=== PATIENT | female | born 1980 | race Caucasian/White ===

== ENCOUNTER 2020-04-14 03:34 | Emergency (ER) | payer SELFPAY ==
[2020-04-14] MEDS ORDERED: HYDROCODONE/APAP 10/325 TAB ONE (04:35)
[2020-04-14 04:40] VITALS: BP 116/67; TEMP 98.2; O2SAT 100
--- NOTE | 2020-04-18 15:34 | ER ---
Nurse's Notes [facility] Name: Dang Willard Age: 40 yrs Sex: Female : 1980 Arrival Date: 04/14/2020 Time: 03:37 Bed 11 Private MD: Diagnosis: Muscle spasm of calf Presentation: 04/14 03:49 Chief complaint: Patient states: Pain to back of left calve after attempting to jump lp1 over railing this evening about 1730; Denies any other injuries. Coronavirus screen: Proceed with normal triage. Ebola Screen: No symptoms or risks identified at this time. Initial Sepsis Screen: Does the patient meet any 2 criteria? No. Patient's initial sepsis screen is negative. Does the patient have a suspected source of infection? No. Patient's initial sepsis screen is negative. Risk Assessment: Do you want to hurt yourself or someone else? Patient reports no desire to harm self or others. Onset of symptoms was April 13, 2020 at 17:30. 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 - Social history:: Smoking status: Patient reports the use of cigarette tobacco products, smokes one-half pack cigarettes per day, Patient/guardian denies using alcohol, street drugs, The patient lives with family. - Family history:: not pertinent. Screenin:53 Abuse screen: Denies threats or abuse. Denies injuries from another. Nutritional lp1 screening: No deficits noted. Tuberculosis screening: No symptoms or risk factors identified. Fall Risk None identified. Assessment: 03:52 General: Appears in no apparent distress. Behavior is calm, cooperative, appropriate lp1 for age. Pain: Complains of pain in left calf Pain currently is 4 out of 10 on a pain scale. Neuro: Level of Consciousness is awake, alert, obeys commands. Cardiovascular: No deficits noted. Respiratory: No deficits noted. GI: No signs and/or symptoms were reported involving the gastrointestinal system. : No signs and/or symptoms were reported regarding the genitourinary system. EENT: No signs and/or symptoms were reported regarding the EENT system. Derm: Skin is pink, warm \T\ dry. Musculoskeletal: Circulation, motion, and sensation intact. Reports pain in left calf. Vital Signs: 03:49 BP 116 / 67; Pulse 91; Resp 18; Temp 98.2(O); Pulse Ox 100% on R/A; Weight 72.57 kg lp1 (R); Height 5 ft. 5 in. (165.10 cm); Pain 4/10; 03:49 Body Mass Index 26.63 (72.57 kg, 165.10 cm) lp1 ED Course: 03:37 Patient arrived in ED. cl3 03:40 Jarrett Dodge, RN is Primary Nurse. jb4 03:47 Pamela Murguia MD is Attending Physician. ma2 03:51 Triage completed. lp1 03:51 Arm band placed on. lp1 03:53 Denia Groves RN is Primary Nurse. lp1 03:53 Patient has correct armband on for positive identification. lp1 03:54 Denia Groves RN is Primary Nurse. lp1 03:54 No provider procedures requiring assistance completed. Patient did not have IV access lp1 during this emergency room visit. Administered Medications: 04:28 Drug: [place] 10 mg-325 mg 1 tabs Route: PO; lp1 04:28 Follow up: Response: Medication administered at discharge. lp1 Outcome: 04:07 Discharge ordered by . [facility] 04:25 Discharged to home via wheelchair, with friend. lp1 04:25 Condition: good 04:25 Discharge instructions given to patient, Instructed on discharge instructions, follow up and referral plans. medication usage, Demonstrated understanding of instructions, follow-up care, medications, Prescriptions given X 1. 04:33 Patient left the ED. lp1 Signatures: Denia Groves RN RN lp1 Jarrett Dodge, MIREYA RN jb4 Pamela Murgiua MD MD ma2 Lewis, Charde cl3 Corrections: (The following items were deleted from the chart) 04:28 04:25 Discharged to home via wheelchair, 1 lp1
--- NOTE | 2020-04-18 15:34 | EDPHYS ---
Physician Documentation [facility] Name: Dang Willard Age: 40 yrs Sex: Female : 1980 Arrival Date: 04/14/2020 Time: 03:37 Bed 11 Private MD: ED Physician Pamela Murguia HPI: 04/14 04:05 This 40 yrs old Female presents to ER via Wheelchair with complaints of Leg ma2 Injury. 04:05 The patient presents with pain. The complaints affect the medial aspect of left calf. ma2 Onset: The symptoms/episode began/occurred gradually, 1 day(s) ago. Associated signs and symptoms: Pertinent negatives nausea, rash, vomiting. Severity of symptoms: At their worst the symptoms were moderate, in the emergency department the symptoms are unchanged. pain is the posterior calf of left leg, gradual x 1 day . 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 - Social history:: Smoking status: Patient reports the use of cigarette tobacco products, smokes one-half pack cigarettes per day, Patient/guardian denies using alcohol, street drugs, The patient lives with family. - Family history:: not pertinent. ROS: 04:05 Constitutional: Negative for fever, chills, and weight loss, Eyes: Negative for injury, ma2 pain, redness, and discharge. 04:05 All other systems are negative. Exam: 04:05 Constitutional: This is a well developed, well nourished patient who is awake, alert, ma2 and in no acute distress. Head/Face: Normocephalic, atraumatic. Eyes: Pupils equal round and reactive to light, extra-ocular motions intact. Lids and lashes normal. Conjunctiva and sclera are non-icteric and not injected. Cornea within normal limits. Periorbital areas with no swelling, redness, or edema. ENT: Nares patent. No nasal discharge, no septal abnormalities noted. Tympanic membranes are normal and external auditory canals are clear. Oropharynx with no redness, swelling, or masses, exudates, or evidence of obstruction, uvula midline. Mucous membranes moist. Neck: Trachea midline, no thyromegaly or masses palpated, and no cervical lymphadenopathy. Supple, full range of motion without nuchal rigidity, or vertebral point tenderness. No Meningismus. Chest/axilla: Normal chest wall appearance and motion. Nontender with no deformity. No lesions are appreciated. Cardiovascular: Regular rate and rhythm with a normal S1 and S2. No gallops, murmurs, or rubs. Normal PMI, no JVD. No pulse deficits. Respiratory: Lungs have equal breath sounds bilaterally, clear to auscultation and percussion. No rales, rhonchi or wheezes noted. No increased work of breathing, no retractions or nasal flaring. Abdomen/GI: Soft, non-tender, with normal bowel sounds. No distension or tympany. No guarding or rebound. No evidence of tenderness throughout. Skin: Warm, dry with normal turgor. Normal color with no rashes, no lesions, and no evidence of cellulitis. MS/ Extremity: calf muscle tenderness on left leg, Pulses equal, no cyanosis. Neurovascular intact. Full, normal range of motion. Neuro: Awake and alert, GCS 15, oriented to person, place, time, and situation. Cranial nerves II-XII grossly intact. Motor strength 5/5 in all extremities. Sensory grossly intact. Cerebellar exam normal. Normal gait. Vital Signs: 03:49 BP 116 / 67; Pulse 91; Resp 18; Temp 98.2(O); Pulse Ox 100% on R/A; Weight 72.57 kg lp1 (R); Height 5 ft. 5 in. (165.10 cm); Pain 4/10; 03:49 Body Mass Index 26.63 (72.57 kg, 165.10 cm) lp1 MDM: 03:47 Patient medically screened. ma2 04:05 Differential diagnosis: contusion, abrasion, tendonitis. Data reviewed: vital signs, ma2 nurses notes. Counseling: I had a detailed discussion with the patient and/or guardian regarding: the historical points, exam findings, and any diagnostic results supporting the discharge/admit diagnosis, the presence of at least one elevated blood pressure reading (>120/80) during this emergency department visit, the need for outpatient follow up. Response to treatment: the patient's symptoms have markedly improved after treatment. Administered Medications: 04:28 Drug: [place] 10 mg-325 mg 1 tabs Route: PO; lp1 04:28 Follow up: Response: Medication administered at discharge. lp1 Disposition: 04/14/20 04:07 Discharged to Home. Impression: Muscle spasm of calf. - Condition is Stable. - Discharge Instructions: Muscle Cramps and Spasms, Heat Therapy. - Prescriptions for Diclofenac Sodium 75 mg Oral Tablet Sustained Release - take 1 tablet by ORAL route 2 times per day; 30 tablet. - Medication Reconciliation Form, Thank You Letter, Antibiotic Education, Prescription Opioid Use form. - Follow up: Private Physician; When: Tomorrow; Reason: If symptoms return. Signatures: Denia Groves RN RN lp1 Pamela Murguia MD MD ma2 Corrections: (The following items were deleted from the chart) 04:33 04:07 04/14/2020 04:07 Discharged to Home. Impression: Muscle spasm of calf. Condition lp1 is Stable. Forms are Medication Reconciliation Form, Thank You Letter, Antibiotic Education, Prescription Opioid Use. Follow up: Private Physician; When: Tomorrow; Reason: If symptoms return. ma2
== END 2020-04-14 04:33 | disposition home or self-care (01) ==
LOC: ER 03:34
DX: M62.831 Muscle spasm of calf (principal); F17.210 Nicotine dependence, cigarettes, uncomplicated; Z88.0 Allergy status to penicillin
CPT/HCPCS: 99283

== ENCOUNTER 2021-04-04 12:08 | Emergency (ER) | payer SELFPAY ==
--- NOTE | 2021-04-04 14:56 | RAD REPORT ---
EXAM DESCRIPTION: RAD - Femur Right - 04/04/2021 2:47 pm CLINICAL HISTORY: Leg pain FINDINGS: No fracture is seen. No bony abnormality is displayed
--- NOTE | 2021-04-04 16:56 | RAD REPORT ---
EXAM DESCRIPTION: USExtremity Venous Uni Ltd04/04/2021 4:44 pm CLINICAL HISTORY: Right leg pain COMPARISON: None. FINDINGS: Right common femoral, superficial femoral, popliteal and right posterior tibial veins are compressible and demonstrate augmentation. Doppler demonstrates good flow. IMPRESSION: No evidence of deep venous thrombosis involving the right lower extremity.
--- NOTE | 2021-04-04 17:24 | ER ---
Nurse's Notes [facility] Name: Dang Willard Age: 41 yrs Sex: Female : 1980 Arrival Date: 04/04/2021 Time: 12:13 Bed 13 [facility] MD: Diagnosis: Acute tonsillitis;Pain in right leg Presentation: 04/04 12:36 Chief complaint: Patient states: right thigh pain since last night, denies trauma. Also jl7 sore throat x 2 days. Coronavirus screen: Client denies travel out of the [place] in the last 14 days. At this time, the client does not indicate any symptoms associated with coronavirus-19. Ebola Screen: No symptoms or risks identified at this time. Initial Sepsis Screen: Does the patient meet any 2 criteria? No. Patient's initial sepsis screen is negative. Does the patient have a suspected source of infection? No. Patient's initial sepsis screen is negative. Risk Assessment: Do you want to hurt yourself or someone else? Patient reports no desire to harm self or others. Onset of symptoms was April 03, 2021. 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 - Social history:: Smoking status: unknown. Screenin:09 Abuse screen: Denies threats or abuse. Nutritional screening: No deficits noted. kg Tuberculosis screening: No symptoms or risk factors identified. Fall Risk No fall in past 12 months (0 pts). No secondary diagnosis (0 pts). No IV (0 pts). Ambulatory Aid- None/Bed Rest/Nurse Assist (0 pts). Gait- Impaired (20 pts.). Mental Status- Oriented to own ability (0 pts). Total Brody Fall Scale indicates Low Risk Score (25-44 pts). Fall prevention measures have been instituted. Side Rails Up X 2 Placed close to Nursing Station Frequent Obs/Assesments occuring Family Present and informed to notify staff if they need to leave bedside As available Patient and Family Educated on Fall Prevention Program and strategies. Assessment: 16:06 General: Appears in no apparent distress. Behavior is calm, cooperative, appropriate kg for age, quiet. Pain: Denies pain. Complains of pain in lateral aspect of right thigh, right hamstring, medial aspect of right thigh and right quadriceps Pain does not radiate. Pain currently is 0 out of 10 on a pain scale. at worst was 9 out of 10 on a pain scale. level that patient reports is acceptable is 3 out of 10 on a pain scale. Quality of pain is described as crampy, stabbing, squeezing, Pain began 0100 am. Pain: Is episodic, Aggravated by putting weight on it. Neuro: No deficits noted. Cardiovascular: No deficits noted. Respiratory: No deficits noted. GI: No deficits noted. : No deficits noted. EENT: No deficits noted. Derm: No deficits noted. Musculoskeletal: Reports Generalized muscles spasms. 17:05 Reassessment: Patient appears in no apparent distress at this time. No changes from vg1 previously documented assessment. Patient and/or family updated on plan of care and expected duration. Pain level reassessed. Patient is alert, oriented x 3, equal unlabored respirations, skin warm/dry/pink. Vital Signs: 12:36 BP 95 / 81; Pulse 99; Resp 17; Temp 98.4; Pulse Ox 99% ; Weight 72.57 kg; Pain 4/10; jl7 16:08 BP 114 / 73; Pulse 96; Resp 20; Pulse Ox 100% ; kg 17:06 BP 110 / 64; Pulse 88; Resp 16; Pulse Ox 100% on R/A; vg1 ED Course: 12:13 Patient arrived in ED. mr 12:36 Rah Dillard, RN is Primary Nurse. jl7 12:38 Triage completed. jl7 12:38 Arm band placed on right wrist. jl7 12:38 Patient placed in waiting room, Patient notified of wait time. jl7 12:46 Strep swab sent to lab. jl7 15:42 Dre Talamantes PA is PHCP. cp 15:42 Richard Ravi MD is Attending Physician. cp 15:49 Alisha Knapp is Primary Nurse. kg 16:10 Patient has correct armband on for positive identification. Bed in low position. Call kg light in reach. Side rails up X2. 16:30 Primary Nurse role handed off by Alisha Knapp vg1 16:30 Alysia Butt, RN is Primary Nurse. vg1 17:50 No provider procedures requiring assistance completed. Patient did not have IV access vg1 during this emergency room visit. Administered Medications: 17:45 Not Given (Physician Discretion): Clindamycin 600 mg IM once cp 17:45 Not Given (Physician Discretion): Ketorolac 30 mg IM once cp 17:49 Drug: Augmentin (Amoxicillin-Clavulanate) 875 mg Route: PO; vg1 17:50 Follow up: Response: Medication administered at discharge. vg1 Outcome: 17:24 Discharge ordered by MD. cp 17:50 Discharged to home via wheelchair. vg1 17:50 Condition: stable 17:50 Discharge instructions given to patient, Instructed on discharge instructions, follow up and referral plans. medication usage, Demonstrated understanding of instructions, follow-up care, medications, Prescriptions given X 3. 17:55 Patient left the ED. vg1 Signatures: Garima Posey mr Dre Talamantes PA PA Rah Henderson RN RN jl7 Alysia Butt, RN RN vg1 Alisha Knapp kg
--- NOTE | 2021-04-04 17:24 | EDPHYS ---
Physician Documentation [facility] Name: Dang Willard Age: 41 yrs Sex: Female : 1980 Arrival Date: 04/04/2021 Time: 12:13 Bed 13 Private MD: ED Physician Richard Ravi HPI: 04/04 15:52 This 41 yrs old Female presents to ER via Wheelchair with complaints of Right cp Leg Pain. 15:52 The patient presents with pain, that is acute. The complaints affect the lateral aspect cp of right thigh, right hamstring and right quadriceps. Context: resulted from an unknown cause, the patient can fully bear weight, the patient is able to ambulate, with mild difficulty, Problem is a result from a previous injury: No. Onset: The symptoms/episode began/occurred last night. Associated signs and symptoms: Pertinent negatives calf tenderness, numbness, swelling, warmth. 15:52 Patient also c/o sore throat times 2 days. Denies fever, denies cough, denies cp difficulty swallowing. 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 - Social history:: Smoking status: unknown. ROS: 15:55 Constitutional: Negative for body aches, chills, fever, poor PO intake. cp 15:55 Eyes: Negative for injury, pain, redness, and discharge. cp 15:55 ENT: Positive for ear pain, sore throat, Negative for drainage from ear(s), difficulty swallowing, difficulty handling secretions, hoarseness. 15:55 Cardiovascular: Negative for chest pain, palpitations. 15:55 Respiratory: Negative for cough, shortness of breath, wheezing. 15:55 Abdomen/GI: Negative for abdominal pain, nausea, vomiting, and diarrhea. 15:55 MS/extremity: Positive for pain, tenderness, of the right upper leg, Negative for injury or acute deformity, decreased range of motion, paresthesias. 15:55 Skin: Negative for rash. 15:55 Neuro: Negative for altered mental status, headache, weakness. 15:55 All other systems are negative. Exam: 17:00 Head/Face: Normocephalic, atraumatic. cp 17:00 Constitutional: The patient appears in no acute distress, alert, awake, comfortable, non-toxic, well developed, well nourished. 17:00 Eyes: Periorbital structures: appear normal, Conjunctiva: normal, no exudate, no cp injection, Sclera: no appreciated abnormality, Lids and lashes: appear normal, bilaterally. 17:00 ENT: External ear(s): are unremarkable, Ear canal(s): are normal, clear, TM's: dullness, bilaterally, Nose: is normal, Mouth: Lips: moist, Oral mucosa: moist, Posterior pharynx: Airway: no evidence of obstruction, patent, Tonsils: bilaterally enlarged, with erythema, with exudate, Uvula: midline. 17:00 Neck: ROM/movement: is normal, is supple, no meningismus, no nuchal rigidity, Lymph nodes: lymphadenopathy is appreciated, anterior cervical nodes. 17:00 Chest/axilla: Inspection: normal, Palpation: is normal, no crepitus, no tenderness. 17:00 Cardiovascular: Rate: normal, Rhythm: regular, Edema: is not appreciated, JVD: is not appreciated. 17:00 Respiratory: the patient does not display signs of respiratory distress, Respirations: normal, no use of accessory muscles, no retractions, labored breathing, is not present. 17:00 Abdomen/GI: Exam negative for discomfort, distension, guarding, Inspection: abdomen appears normal. 17:00 Musculoskeletal/extremity: Extremities: grossly normal except: noted in the right quadriceps and right hamstring and lateral aspect of right thigh: pain, There is no evidence of swelling, ROM: full passive range of motion, in the right leg, Pulses: noted to be 2+ in the right dorsalis pedis artery, Sensation intact. 17:00 Skin: cellulitis, is not appreciated, no rash present. Vital Signs: 12:36 BP 95 / 81; Pulse 99; Resp 17; Temp 98.4; Pulse Ox 99% ; Weight 72.57 kg; Pain 4/10; jl7 16:08 BP 114 / 73; Pulse 96; Resp 20; Pulse Ox 100% ; kg 17:06 BP 110 / 64; Pulse 88; Resp 16; Pulse Ox 100% on R/A; vg1 MDM: 15:48 Patient medically screened. cp 16:00 Differential diagnosis: closed fracture, tendonitis, DVT, tonsillar abscess, cp tonsillitis, strep throat. 17:23 Data reviewed: vital signs, nurses notes, lab test result(s), radiologic studies, plain cp films, ultrasound. 17:24 Patient medically screened. 04/04 12:39 Order name: Strep [facility] 04/04 13:04 Order name: Group A Streptococcus Rapid Sc; Complete Time: 15:48 EDMS 04/04 14:14 Order name: Femur Right XRAY [facility] 04/04 14:57 Order name: RAD; Complete Time: 15:48 EDMS 04/04 15:52 Order name: US Extremity Venous Unilateral Ltd cp 04/04 16:57 Order name: US; Complete Time: 16:59 EDMS Administered Medications: 17:45 Not Given (Physician Discretion): Clindamycin 600 mg IM once cp 17:45 Not Given (Physician Discretion): Ketorolac 30 mg IM once cp 17:49 Drug: Augmentin (Amoxicillin-Clavulanate) 875 mg Route: PO; vg1 17:50 Follow up: Response: Medication administered at discharge. vg1 Disposition: 17:57 Co-signature as Attending Physician, Richard Ravi MD. rn Disposition: 04/04/21 17:24 Discharged to Home. Impression: Acute tonsillitis, Pain in right leg. - Condition is Stable. - Discharge Instructions: Musculoskeletal Pain, Tonsillitis. - Prescriptions for Cyclobenzaprine 10 mg Oral Tablet - take 1 tablet by ORAL route every 8 hours As needed; 15 tablet. Diclofenac Sodium 75 mg Oral Tablet, Delayed Release (E.C.) - take 1 tablet by ORAL route 2 times per day; 20 tablet. Augmentin 875- 125 mg Oral Tablet - take 1 tablet by ORAL route every 12 hours for 10 days; 20 tablet. - Medication Reconciliation Form, Thank You Letter, Antibiotic Education, Prescription Opioid Use form. - Follow up: Private Physician; When: 2 - 3 days; Reason: Worsening of condition. - Problem is new. - Symptoms have improved. Signatures: Dispatcher [employer] EDMS Richard Ravi MD MD rn Dre Talamantes PA PA cp Leal, Jahala RN RN jl7 Alysia Butt RN RN vg1 Corrections: (The following items were deleted from the chart) 17:50 17:17 Crutches ordered. cp vg1 17:55 17:24 04/04/2021 17:24 Discharged to Home. Impression: Acute tonsillitis; Pain in right vg1 leg. Condition is Stable. Forms are Medication Reconciliation Form, Thank You Letter, Antibiotic Education, Prescription Opioid Use. Follow up: Private Physician; When: 2 - 3 days; Reason: Worsening of condition. Problem is new. Symptoms have improved. cp
[2021-04-04] MEDS ORDERED: KETOROLAC 30 MG/ML INJ ONE (17:46)
[2021-04-04] MEDS ORDERED: CLINDAMYCIN IV 150 MG/ML (4 mL) VIAL ONE (17:46)
[2021-04-04] MEDS ORDERED: AMOX/K CLAV 875 MG TAB ONE (18:06)
[2021-04-04 18:15] VITALS: TEMP 98.4
[2021-04-04 18:17] VITALS: O2SAT 100
[2021-04-04 18:19] VITALS: BP 110/64
== END 2021-04-04 17:55 | disposition home or self-care (01) ==
LOC: ER 12:08
DX: M79.604 Pain in right leg (principal); J03.90 Acute tonsillitis, unspecified; Z88.0 Allergy status to penicillin
CPT/HCPCS: 87070; 87081; 93971; 99283; S0077

== ENCOUNTER 2021-05-31 01:29 | Emergency (ER) | payer SELFPAY ==
--- NOTE | 2021-05-31 02:59 | ER ---
Nurse's Notes [facility] Name: Dang Willard Age: 41 yrs Sex: Female : 1980 Arrival Date: 05/31/2021 Time: 01:33 Bed Waiting Private MD: Diagnosis: ED Course: 05/31 01:33 Patient arrived in ED. wm 02:19 Patient's name was called from ER lobby. No response. bb 02:58 Patient's name was called from ER lobby. No response. Unable to locate patient. Will bb disposition as left without being seen by a provider. Administered Medications: No medications were administered Outcome: 02:59 Patient left the ED. bb Signatures: Alana Bales RN RN bb HughDang
== END 2021-05-31 02:59 | disposition left against medical advice (07) ==
LOC: ER 01:29
DX: Z02.9 Encounter for administrative examinations, unspecified (principal)